=== PATIENT | female | born 1960 | race Caucasian/White ===

== ENCOUNTER 2023-05-01 10:05 | Outpatient (CLI) | payer BC | END 2023-05-01 10:06 | disposition home or self-care (01) | LOC: BICMRI 10:05 | PROVIDERS: ATTEND Orthopaedic Surgery | DX: M25.512 Pain in left shoulder (principal); S46.912D Strain of unspecified muscle, fascia and tendon at shoulder and upper arm level, left arm, subsequent encounter ==